=== PATIENT | female | born 1980 | race Caucasian/White ===

== ENCOUNTER → 2018-02-25 10:30 | Outpatient (CLI) | payer OTHER, SELFPAY ==
[2018-02-25 12:27] LABS: Anion Gap 8 (5-15); BUN 14 mg/dL (7-18); BUN/Creat Ratio 14.8 RATIO (10-20); Calcium,Total 8.7 mg/dL (8.5-10.1); Chloride 103 mmol/L (98-107); Creatinine, Serum 0.94 mg/dL (0.55-1.02); EST Glomerular Filtration Rate 70 mL/min (>60); Est Glom Filt Rate - Afr Amer 85 mL/min (>60); Glucose 83 mg/dL (74-106); Magnesium 2.3 mg/dL (1.6-2.6); Sodium Level 142 mmol/L (136-145); Thyroid Stim Hormone (TSH) 0.94 uIU/mL (0.358-3.74)
== END ==
PROVIDERS: Family Provider Family Medicine; PCP Family Medicine; Visit Provider Internal Medicine Cardiovascular Disease
DX: R00.2 Palpitations (principal)
CPT/HCPCS: 36415; 80048; 83735; 84443; 93225; 93226

== ENCOUNTER → 2018-09-28 11:38 | Outpatient (CLI) | payer OTHER, SELFPAY ==
[2018-09-15 15:09] VITALS: BMI 27.4
--- NOTE | 2018-09-28 14:06 | STRESSREP ---
Stress Test Report Exercise stress test. 38-year-old lady with a history of chest pain and palpitations. Stress protocol: Resting EKG demonstrates normal sinus rhythm with rate of 74 bpm normal intervals are noted. Patient exercised according to regular Krishna protocol for total duration of 12 minutes completing stage IV of the Krishna protocol the maximum heart rate attained was 187 bpm which was 103% maximum predicted heart rate the maximum workload was 13.4 metabolic equivalents. At rest there were no ST or T wave changes noted suggest ischemia at peak exercise upsloping changes were noted with no criteria for ischemia. No arrhythmias were noted no supra ventricular tachyarrhythmia was present. The resting blood pressure 122/70 with a peak blood pressure 152/68 rate pressure product was 28,400. Conclusion: Exercise stress test with no EKG criteria for ischemia at a high workload. Excellent functional capacity No arrhythmias noted.
== END ==
PROVIDERS: Family Provider Family Medicine; PCP Family Medicine; Referring Provider Internal Medicine Cardiovascular Disease; Visit Provider Internal Medicine Cardiovascular Disease
DX: R00.2 Palpitations (principal)
CPT/HCPCS: 93017

== ENCOUNTER → 2023-01-15 | Outpatient (CLI) | payer OTHER, SELFPAY ==
--- NOTE | 2023-01-15 12:57 | ECHOD_ITS ---
Reason For Study: ARRHYTHMIA Procedure This was a 2D Doppler, Color Flow transthoracic echocardiogram. Exam performed in department. Left Ventricle Normal LV size. Left ventricular systolic function is normal. The estimated ejection fraction is 60 %. Normal diastology for age. No regional wall motion abnormalities noted. Right Ventricle Normal RV size. Normal systolic function. Atria Normal left atrium. Normal right atrium. Mitral Valve Normal mitral valve. Tricuspid Valve Normal tricuspid valve. Mild tricuspid valve insufficiency. Aortic Valve Normal aortic valve. Trisinus/trileaflet aortic valve. Pulmonic Valve Normal pulmonic valve. Great Vessels Normal aortic root. The pulmonary artery is normal size. Normal inferior vena cava. Pericardium/Pleural No pericardial effusion. MMode/2D Measurements & Calculations LVIDd: 4.3 cm IVSd: 0.79 cm LVOT diam: 1.9 cm LVIDs: 3.0 cm LVPWd: 0.85 cm LVOT area: 3.0 cm2 RVDd: 3.0 cm FS: 31.0 % Ao root diam: 3.0 cm LAV(MOD-bp): 38.5 ml LVAd ap4: 27.9 cm2 LAV(MOD-bp) Indexed: 21.6 ml/m2 LVLd ap4: 7.5 cm LAV(MOD-sp2): 39.4 ml EDV(MOD-sp4): 85.0 ml LAV(MOD-sp4): 32.7 ml EDV(sp4-el): 88.6 ml LVAs ap4: 15.0 cm2 LVLs ap4: 6.4 cm ESV(MOD-sp4): 31.2 ml ESV(sp4-el): 29.7 ml EF(MOD-sp4): 63.3 % EF(sp4-el): 66.5 % LVAd ap2: 23.3 cm2 SV(MOD-sp4): 53.8 ml SV(MOD-sp2): 37.3 ml LVLd ap2: 7.9 cm EDV(MOD-sp2): 59.4 ml EDV(sp2-el): 58.4 ml LVAs ap2: 12.5 cm2 LVLs ap2: 6.6 cm ESV(MOD-sp2): 22.1 ml ESV(sp2-el): 20.2 ml EF(MOD-sp2): 62.8 % SV(sp4-el): 58.9 ml LA dimension(2D): 2.6 cm LA A4 area: 14.9 cm2 RA A4 area: 13.5 cm2 TAPSE: 1.9 cm Time Measurements MV dec time: 0.17 sec Doppler Measurements & Calculations MV E max ry: 75.3 cm/sec Lat Peak E' Ry: 14.6 cm/sec Med Peak E' Ry: 11.8 cm/sec MV A max ry: 66.8 cm/sec E/E' lat: 5.2 E/E' med: 6.4 MV E/A: 1.1 Ao V2 max: 153.0 cm/sec LV V1 max: 100.7 cm/sec MV dec slope: 435.4 cm/sec2 Ao max P.4 mmHg LV V1 max P.1 mmHg Ao V2 mean: 95.0 cm/sec LV V1 mean P.1 mmHg Ao mean P.2 mmHg LV V1 mean: 68.1 cm/sec Ao V2 VTI: 29.3 cm LV V1 VTI: 18.7 cm AV (velocity ratio): 0.64 EVELIO(I,D): 1.9 cm2 EVELIO(V,D): 1.9 cm2 SV(LVOT): 55.1 ml PA V2 max: 72.6 cm/sec TR max ry: 221.7 cm/sec PA max PG (full): 0.28 mmHg TR max P.7 mmHg ECHO/Echo Complete Interpretation Summary Normal LV size. Left ventricular systolic function is normal. The estimated ejection fraction is 60 %. Normal diastology for age. Structurally normal valves. Ordering Physician: Bossman Crane Referring Physician: MD Claire Slava Performed By: Marry Amin RDCS
== END | disposition home or self-care (01) ==
LOC: CVS 12:55
PROVIDERS: PCP Family Medicine; Referring Provider Internal Medicine Cardiovascular Disease; Visit Provider Internal Medicine Cardiovascular Disease
DX: I47.1 Supraventricular tachycardia (principal)
CPT/HCPCS: 93306

== ENCOUNTER 2023-06-25 14:33 | Emergency (ER) | payer OTHER, SELFPAY ==
[2023-06-25 14:34] VITALS: BP 145/96; PULSE 137; RESP 16; TEMP 36.6; O2SAT 100; BMI 28.8
--- NOTE | 2023-06-25 14:44 | EKG12_ITS ---
Test Reason : PALPS Blood Pressure : / mmHG Vent. Rate : 111 BPM Atrial Rate : 111 BPM P-R Int : 146 ms QRS Dur : 086 ms QT Int : 350 ms P-R-T Axes : 076 072 022 degrees QTc Int : 476 ms Sinus tachycardia Possible Left atrial enlargement Nonspecific ST and T wave abnormality Abnormal ECG Confirmed by ENRIKE SARAH, KYUNG ([id number]), food expeditor KIP MARTINEZ ([id number]) on 06/30/2023 1:52:23 P M Referred By: FARHAD/LAURA Confirmed By:BUDDY CALVERT MD
[2023-06-25 14:52] VITALS: BP 145/88; PULSE 110; RESP 16; O2SAT 100
--- NOTE | 2023-06-25 15:10 | ED.VIS.CHEST ---
HPI History of Present Illness Chief Complaint: Palpitations Informant: patient Onset/Context/Timing Onset: Today Activity at onset: sudden Timing: Continuous Quality: Positive for - (Racing) Location: Substernal Worsened By: Nothing Relieved By: - (Drinking fluids) Associated Symptoms: Positive for Nausea and Palpitations; Negative for Vomiting, Diaphoresis, Dyspnea, Cough, Fever, Lightheadedness or Acid Reflux Narrative Narrative: Presents with palpitations that began this morning. Patient states that she accidentally took her son's medications today. Patient states that when she realized that she took her normal medicine. Patient states her son is on Focalin and Intuniv for ADHD. Patient states that she has a history of tachycardia and is on Cardizem for that. Currently, she feels like her heart is racing. Patient states she has been drinking fluids which has been helping. Patient states her symptoms have been waxing and waning since this morning. Patient denies any chest pain or shortness of breath. Patient admits to some nausea but denies any vomiting. Patient denies any diaphoresis. CVD Risk Factors: Negative for Hypertension, Diabetes, Hypercholesterolemia, Family History 1' </=55 or Smoking PE Risk Factors: Negative for Recent Travel/Surgery, Recent Immobilization, Prior DVT or PE, Cancer or OCP + Smoking + >/=35 PFSH [facility] Medical History (Updated 06/25/23 @ 18:[address] Lucio Alonzo, ) Anxiety Palpitations Paroxysmal SVT (supraventricular tachycardia) Home Medications multivitamin 1 tab PO QDAY 02/24/18 [History Last Taken Unknown] escitalopram oxalate 20 mg tablet (Lexapro) 20 mg PO DAILY 09/15/18 [History Last Taken Unknown] diltiazem HCl 180 mg capsule,extended release 24 hr See Rx Instructions .Route .COMPLEX #30 caps 11/28/22 [Rx Last Taken Unknown] Allergy/AdvReac Type Severity Reaction Status Date / Time No Known Allergies Allergy Verified 06/25/23 14:36 Family History Mother Arthritis Hypertension Cancer Surgical History no surgical history no surgical history Social History Smoking Status: Never smoker alcohol intake: never substance use type: does not use ROS ROS ED Constitutional Constitutional ED: Denies chills or fever(s) Eyes Eyes: Denies blurry vision or change in vision ENT ENT ED: Denies rhinorrhea or sore throat Cardiovascular Cardiovascular: Reports palpitations; Denies chest pain Respiratory/Chest Respiratory/Chest: Denies cough or dyspnea Gastrointestinal Gastrointestinal: Reports nausea; Denies vomiting Genitourinary Genitourinary ED: Denies dysuria or hematuria Musculoskeletal Musculoskeletal: Denies back pain or neck pain Integumentary Denies abscess or rash Neurologic Neurologic: Denies headache(s) or weakness Allergic/Immunologic Allergic/Immunologic ED: Denies mouth swelling or urticaria EXAM Physical Exam Const Vital Signs: 06/25/23 14:34 06/25/23 14:52 06/25/23 15:33 Temperature 97.8 F Temperature Source Temporal Pulse Rate 137 H 110 H 106 H Respiratory Rate 16 16 16 Blood Pressure 145/96 H 145/88 H Blood Pressure Mean 112 107 Pulse Ox 100 100 98 Oxygen Delivery Method Room Air Room Air Room Air 06/25/23 16:06 Temperature Temperature Source Pulse Rate Respiratory Rate Blood Pressure 127/78 H Blood Pressure Mean 94 Pulse Ox Oxygen Delivery Method Positive well nourished and well developed General Appearance ED: well developed and NAD HEENT Reports moist mucous membranes Neck supple and no JVD Resp normal respiratory effort and clear to auscultation bilaterally Cardio regular rhythm Rate: tachycardic GI soft to palpation, non-tender and non-distended Neuro oriented x3, CN's II-XII intact bilaterally and no sensory deficits noted Sensorium / Orientation: awake and alert Motor Exam: strength 5/5 throughout Psych mental status grossly normal MDM MDM MDM Narrative Medical decision making narrative: Differential diagnosis includes medication reaction, anxiety, cardiac dysrhythmia, cardiac ischemia, and electrolyte abnormality. EKG will be obtained to assess for cardiac dysrhythmia and cardiac ischemia. CBC will be obtained to assess for leukocytosis and anemia. Basic metabolic profile will be obtained to assess for electrolyte abnormality and renal function. High-sensitivity troponin will be obtained to assess for cardiac ischemia. Lab Data Attestation: I reviewed the patient's lab results. Lab results narrative: CBC was reviewed and was within normal limits. Basic metabolic profile was reviewed and was essentially within normal limits. High-sensitivity troponin was reviewed and was normal at 6. Labs: Laboratory Results - last 24 hr 06/25/23 15:29 WBC 10.3 RBC 4.89 Hgb 13.3 Hct 40.9 MCV 83.6 MCH 27.2 MCHC 32.5 RDW Std Deviation 37.7 RDW Coeff of Sylvia 12.5 Plt Count 323 MPV 9.2 Immature Gran % (Auto) 0.500 Neut % (Auto) 80.3 H Lymph % (Auto) 13.4 L Villalba % (Auto) 5.0 Eos % (Auto) 0.4 Baso % (Auto) 0.4 Absolute Neuts (auto) 8.3 H Absolute Lymphs (auto) 1.37 Nucleated RBC % 0 Sodium 137 Potassium 3.6 Chloride 102 Carbon Dioxide 30.0 Anion Gap 5 BUN 12 Creatinine 1.00 Estim Creat Clear Calc 61.99 Est GFR (MDRD) Af Amer 78 Est GFR (MDRD) Non-Af 64 BUN/Creatinine Ratio 12.0 Glucose 138 H Calcium 9.9 Troponin I High Sens 6 EKG Initial EKG: Attestation: I personally reviewed and interpreted this EKG as follows: Interpretation: Sinus Tachycardia (111) Comments: EKG was obtained. On my independent interpretation, it showed a sinus tachycardia with a rate of 111. OK interval, QRS interval, and QTc intervals were all normal. [place] was normal. There are no acute ST or T wave changes. Prior EKG tracings: available for review Prior: Unchanged (08/17/2005) Treatment and Re-Evaluation :: Patient was given IV fluids. Patient is feeling better on reevaluation. Patient was advised that this is most likely effect of her sons medication. Patient was instructed to drink plenty of fluids. Patient was instructed to follow-up with her primary care physician in 5 to 7 days. Patient understood and was agreeable with the plan. All questions were answered. Discharge Plan Triage Chief Complaint: Palpitations ED Provider: Lucio Alonzo Dx/Rx/DC Orders Clinical Impression: Palpitations, Adverse drug reaction, Tachycardia Instructions: ED Drug Reaction, Other, ED Palpitations Prescriptions: No Action multivitamin tablet 1 tab PO QDAY escitalopram oxalate [Lexapro] 20 mg tablet 20 mg PO DAILY diltiazem HCl 180 mg capsule,extended release 24hr See Rx Instructions .ROUTE .COMPLEX Qty: 30 2RF Dose Instruction: 180 MG ORALLY DAILY Rx Instructions: 180 MG ORALLY DAILY Primary Care Provider: Slava Rangel Referrals: Slava Rangel MD [Primary Care Provider] - 5-7 Days Disposition Disposition: Home, Self Care
[2023-06-25 15:33] VITALS: PULSE 106; RESP 16; O2SAT 98
[2023-06-25] MEDS: 0.9% Normal Saline (1000mL) 1,000 ML 1000 ML IV (15:33)
[2023-06-25 15:34] LABS: Absolute Lymphocyte Count 1.37 X10^3/uL (0.83-4.51); Absolute Neutrophil Count 8.3 X10^3/uL (2.0-7.7); Basophil# 0.04 X10^3/uL; Basophil% 0.4 % (0-1); Eosinophil# 0.04 X10^3/uL; Eosinophils% 0.4 % (0-5); Hematocrit 40.9 % (37-47); Hemoglobin 13.3 g/dL (12.0-15.0); Lymphocyte # 1.37 X10^3/ul (0.83-4.51); Lymphocyte % 13.4 % (19-41); Mean Corp Hgb Conc 32.5 g/dL (32-36); Mean Corpuscular Hgb 27.2 pg (27.0-32.0); Mean Corpuscular Volume 83.6 fL (81-99); Mean Platelet Vol. 9.2 fl (6.2-12.0); Monocyte# 0.51 X10^3/uL; NRBC Flagged by Analyzer 0 % (0-5); Neutrophil # 8.25 X10^3/uL (2.7-7.7); Neutrophil % 80.3 % (47-70); Platelet Count 323 K/mm3 (150-450); RBC Distribution Width CV 12.5 % (11.6-14.6); RBC Distribution Width SD 37.7 fl (35.1-43.9); Red Blood Count 4.89 M/mm3 (4.2-5.4); White Blood Count 10.3 K/mm3 (4.4-11.0)
[2023-06-25 15:56] LABS: Anion Gap 5 (5-15); BUN 12 mg/dL (7-18); Calcium,Total 9.9 mg/dL (8.5-10.1); Chloride 102 mmol/L (98-107); EST Glomerular Filtration Rate 64 mL/min (>60); Est Glom Filt Rate - Afr Amer 78 mL/min (>60); Estimated Creatinine Clearance 61.99 ml/min; Glucose 138 mg/dL (74-106); Potassium 3.6 mmol/L (3.5-5.1); Sodium Level 137 mmol/L (136-145); Troponin-I HS 6 pg/mL (3.0-54.0)
[2023-06-25 16:06] VITALS: BP 127/78
[2023-06-25 18:10] VITALS: BP 127/78; PULSE 93; RESP 16; O2SAT 97
== END 2023-06-25 18:11 | disposition home or self-care (01) ==
PROVIDERS: Emergency Provider Emergency Medicine; PCP Family Medicine; Visit Provider Emergency Medicine
DX: R00.2 Palpitations (principal); T50.905A Adverse effect of unspecified drugs, medicaments and biological substances, initial encounter; R00.0 Tachycardia, unspecified
CPT/HCPCS: 80048; 84484; 85025; 93005; 99284; A4216